=== PATIENT | male | born 1985 | race Caucasian/White ===

== ENCOUNTER 2020-07-24 12:15 | Inpatient (IN) | payer OTHER, SELFPAY ==
[~2020-07-24] VITALS: Ht 182.9 cm; Wt 75.7 kg
[2020-07-24 12:18] VITALS: BP 117/65
[2020-07-24 12:49] LABS: BASOPHILS # (AUTO) 0.1 K/uL (0.00-0.22); BASOPHILS % (AUTO) 0.9 % (0.0-2.0); EOSINOPHILS # (AUTO) 0.4 K/uL (0-0.4); EOSINOPHILS % (AUTO) 7.1 % (0.0-4.0); HEMATOCRIT 40.3 % (36-52); HEMOGLOBIN 13.6 g/dL (12.0-18.0); LYMPHOCYTES # (AUTO) 2.1 K/uL (2.0-11.5); LYMPHOCYTES % (AUTO) 37.9 % (20.5-51.1); MEAN CORPUSCULAR HEMOGLOBIN 33 pg (27-31); MEAN CORPUSCULAR HGB CONC 34 g/dL (33-37); MEAN CORPUSCULAR VOLUME 96.7 fL (80-94); MONOCYTES # (AUTO) 0.5 K/uL (0.8-1.0); MONOCYTES % (AUTO) 9.4 % (1.7-9.3); NEUTROPHILS # (AUTO) 2.5 K/uL (1.8-7.7); NEUTROPHILS % (AUTO) 44.7 % (42.2-75.2); PLATELET COUNT (AUTO) 132 K/uL (140-450); RED BLOOD CELL COUNT(AUTO) 4.17 MIL/uL (4.20-6.10); WHITE BLOOD COUNT (AUTO) 5.6 K/uL (4.8-10.8)
[2020-07-24 13:41] LABS: ALBUMIN 3.5 g/dL (3.4-5.0); ANION GAP 11.3 (8-16); ASPARTATE AMINOTRANSFERASE 13 U/L (15-37); CHLORIDE 105 mmol/L (98-107); CREATININE 0.8 mg/dL (0.6-1.3); GFR ARICAN-AMERICAN 142 mL/min (>90); GLUCOSE 92 mg/dL (74-106); POTASSIUM 4.3 mmol/L (3.5-5.1); SODIUM SERUM 139 mmol/L (136-145); TOTAL BILIRUBIN 0.2 mg/dL (0.0-1.0); UREA NITROGEN, BLOOD 18 mg/dL (7-18)
[2020-07-24 13:42] LABS: SALICYLATE < 2.8 mg/dL (2.8-20.0)
[2020-07-24 13:43] LABS: ACETAMINOPHEN < 0.5 ug/ml (10-30)
[2020-07-24] MEDS ORDERED: ONDANSETRON 4 MG/2 ML VIAL IVP PRN (15:35)
[2020-07-24] MEDS: NACL 0.9% 1,000 ML IV SCH (16:27)
[2020-07-24] MEDS: ACETAMINOPHEN 325 MG TAB PO PRN (19:37)
[2020-07-24 20:00] VITALS: BP 109/70
[2020-07-24 20:12] LABS: APPEARANCE,URINE CLEAR (CLEAR); BILIRUBIN,URINE NEGATIVE (NEGATIVE); BLOOD, URINE NEGATIVE (NEGATIVE); COLOR,URINE YELLOW (YELLOW); LEUKOCYTE ESTERASE ,URINE NEGATIVE (NEGATIVE); NITRITE, URINE NEGATIVE (NEGATIVE); UGLUCOSE NEGATIVE (NEGATIVE)
[2020-07-24 20:28] LABS: BARBITURATE, URINE NEGATIVE ng/ml (NEG <=200); BENZODIAZEPINE, URINE POSITIVE ng/mL (NEG <=200); CANNABINOID, URINE NEGATIVE ng/mL (NEG <=50); COCAINE, URINE NEGATIVE ng/mL (NEG <=300); OPIATE, URINE NEGATIVE ng/mL (NEG <=2000); PHENCYCLIDINE SCREEN,URINE NEGATIVE ng/mL (NEG <=25)
[2020-07-25] VITALS: BP 89/51
[2020-07-25] MEDS: NACL 0.9% 1,000 ML IV SCH (01:35)
[2020-07-25 04:00] VITALS: BP 97/67
[2020-07-25 07:30] LABS: ALBUMIN 3.2 g/dL (3.4-5.0); ANION GAP 8.9 (8-16); BASOPHILS % (AUTO) 0.7 % (0.0-2.0); CARBON DIOXIDE 29.5 mmol/L (21-32); CREATININE 0.9 mg/dL (0.6-1.3); EOSINOPHILS # (AUTO) 0.4 K/uL (0-0.4); EOSINOPHILS % (AUTO) 8.5 % (0.0-4.0); HEMATOCRIT 39.3 % (36-52); HEMOGLOBIN 13.7 g/dL (12.0-18.0); LYMPHOCYTES # (AUTO) 1.9 K/uL (2.0-11.5); LYMPHOCYTES % (AUTO) 38.2 % (20.5-51.1); MEAN CORPUSCULAR HEMOGLOBIN 33 pg (27-31); MEAN CORPUSCULAR HGB CONC 35 g/dL (33-37); MEAN CORPUSCULAR VOLUME 94.8 fL (80-94); MONOCYTES # (AUTO) 0.5 K/uL (0.8-1.0); MONOCYTES % (AUTO) 9.7 % (1.7-9.3); NEUTROPHILS # (AUTO) 2.1 K/uL (1.8-7.7); NEUTROPHILS % (AUTO) 42.9 % (42.2-75.2); PLATELET COUNT (AUTO) 123 K/uL (140-450); POTASSIUM 4.4 mmol/L (3.5-5.1); RED BLOOD CELL COUNT(AUTO) 4.14 MIL/uL (4.20-6.10); RED CELL DISTRIBUTION WIDTH 13.1 % (11.6-13.7); TOTAL BILIRUBIN 0.3 mg/dL (0.0-1.0); WHITE BLOOD COUNT (AUTO) 4.9 K/uL (4.8-10.8)
[2020-07-25 07:56] VITALS: BP 105/70
[2020-07-25] MEDS: ENOXAPARIN 40 MG/0.4 ML SYR SUBQ SCH (09:28)
[2020-07-25 16:00] VITALS: BP 118/67
[2020-07-26] VITALS: BP 112/62
[2020-07-26] MEDS: ACETAMINOPHEN 325 MG TAB PO PRN ×3 (00:07→21:21)
[2020-07-26 04:00] VITALS: BP 125/70
[2020-07-26 08:00] VITALS: BP 120/75
[2020-07-26] MEDS ORDERED: DIVALPROEX 500 MG TABER PO SCH (09:00)
[2020-07-26] MEDS ORDERED: ESCITALOPRAM 20 MG TAB PO SCH (09:00)
[2020-07-26] MEDS: lamoTRIgine 25 MG TAB PO SCH ×2 (09:22→21:19)
[2020-07-26] MEDS: ENOXAPARIN 40 MG/0.4 ML SYR SUBQ SCH (09:22)
[2020-07-26 10:05] LABS: BASOPHILS % (AUTO) 0.9 % (0.0-2.0); EOSINOPHILS # (AUTO) 0.3 K/uL (0-0.4); EOSINOPHILS % (AUTO) 6.9 % (0.0-4.0); HEMATOCRIT 41.7 % (36-52); LYMPHOCYTES # (AUTO) 1.5 K/uL (2.0-11.5); LYMPHOCYTES % (AUTO) 31.1 % (20.5-51.1); MEAN CORPUSCULAR HEMOGLOBIN 33 pg (27-31); MEAN CORPUSCULAR HGB CONC 34 g/dL (33-37); MEAN CORPUSCULAR VOLUME 96.6 fL (80-94); MONOCYTES # (AUTO) 0.5 K/uL (0.8-1.0); MONOCYTES % (AUTO) 10.4 % (1.7-9.3); NEUTROPHILS # (AUTO) 2.5 K/uL (1.8-7.7); NEUTROPHILS % (AUTO) 50.7 % (42.2-75.2); PLATELET COUNT (AUTO) 125 K/uL (140-450); RED BLOOD CELL COUNT(AUTO) 4.32 MIL/uL (4.20-6.10); RED CELL DISTRIBUTION WIDTH 13.1 % (11.6-13.7); WHITE BLOOD COUNT (AUTO) 4.9 K/uL (4.8-10.8)
[2020-07-26 11:09] LABS: ALBUMIN 3.4 g/dL (3.4-5.0); ANION GAP 13.8 (8-16); CARBON DIOXIDE 27.7 mmol/L (21-32); CREATININE 1.1 mg/dL (0.6-1.3); POTASSIUM 4.5 mmol/L (3.5-5.1); TOTAL BILIRUBIN 0.2 mg/dL (0.0-1.0)
[2020-07-26 16:00] VITALS: BP 135/82
[2020-07-26] MEDS ORDERED: KETOROLAC 10 MG TAB PO PRN (20:20)
[2020-07-26] MEDS ORDERED: DIVALPROEX 500 MG TABEC PO SCH (21:00)
[2020-07-27] VITALS: BP 118/78
[2020-07-27 00:48] VITALS: BP 123/84
== END 2020-07-27 02:00 | DRG 812 ==
LOC: MED 12:15 → MTU 15:38
PROVIDERS: ADMIT Internal Medicine; ATTEND Internal Medicine
DX: T39.311A Poisoning by propionic acid derivatives, accidental (unintentional), initial encounter (principal); F32.9 Major depressive disorder, single episode, unspecified; F43.10 Post-traumatic stress disorder, unspecified; F41.9 Anxiety disorder, unspecified; Y92.89 Other specified places as the place of occurrence of the external cause; Z20.822 Contact with and (suspected) exposure to COVID-19
CPT/HCPCS: 36415; 70450; 80053; 80305; 81003; 85025; 87081; 99285; G0480; G0482; J1650; U0003

== ENCOUNTER 2020-09-04 11:04 | Emergency (ER) | payer OTHER, SELFPAY ==
[~2020-09-04] VITALS: Ht 180.3 cm; Wt 70.3 kg
[2020-09-04 11:16] VITALS: BP 117/81
--- NOTE | 2020-09-04 11:27 | NUR ---
pt ambulated to bed 12.
--- NOTE | 2020-09-04 12:06 | NUR ---
34 YEAR OLD MALE COMPLAINS OF LOWER BACK PAIN AND LEFT LEG PAIN X 1 MONTH. PT STATES HE FELL 2-3 WEEKS AGO AND USES WALKER TO AMBULATE DUE TO PAIN. PT AOX4, BREATHING EVEN AND UNLABORED, SKIN WARM AND DRY. BED IN LOWEST POSITION, LOCKED, BED RAIL UPX1. PMH - DENIES ALLERGIES - NKA
[2020-09-04] MEDS ORDERED: KETOROLAC 30 MG/ML VIAL IM ONE (12:10)
[2020-09-04] MEDS ORDERED: PRED20TA5 PO (12:12)
[2020-09-04] MEDS ORDERED: LIDO1ADH47 TP (12:12)
[2020-09-04] MEDS ORDERED: METH-1681 PO (12:12)
[2020-09-04] MEDS ORDERED: NAPR-54 PO (12:12)
[2020-09-04 12:29] VITALS: BP 117/81
--- NOTE | 2020-09-04 12:30 | NUR ---
Patient discharged with v/s stable. Written and verbal after care instructions given and explained. Patient alert, oriented and verbalized understanding of instructions. Ambulatory with steady gait. All questions addressed prior to discharge. ID band removed. Patient advised to follow up with PMD. Rx of LIDOCAINE PATCH, ROBAXIN, NAPROXEN, PREDNISONE given. Patient educated on indication of medication including possible reaction and side effects. Opportunity to ask questions provided and answered.
== END 2020-09-04 12:30 | disposition home or self-care (01) ==
LOC: MED 11:04
DX: M54.42 Lumbago with sciatica, left side (principal); Z79.899 Other long term (current) drug therapy
CPT/HCPCS: 96372; 99283; J1885

== ENCOUNTER 2020-09-08 16:23 | Emergency (ER) | payer OTHER ==
[~2020-09-08] VITALS: Ht 180.3 cm; Wt 74.8 kg
[~2020-09-08 16:23] MED LIST: LIDO1ADH47 TP; METH-1681 PO; NAPR-54 PO; PRED20TA5 PO
[2020-09-08 16:31] VITALS: BP 112/69
--- NOTE | 2020-09-08 17:05 | NUR ---
Patient ambulated from lobby to bed 11 with steady/even gait.
--- NOTE | 2020-09-08 17:25 | NUR ---
34 y/o M BIB self from home with c/c left leg pain. Patient A&Ox4, ambulatory, states seen here for similar symptoms on 09/04/20, discharged with pain medication for sciatica that has not relieved pain. Patient reports fall x 1 month ago causing pain to left hip, thigh and ankle that is 9/10, sharp/throbbing/constant, starting at hip and radiating to left ankle. Patient states Lidocaine patch applied without relief to pain. Patient denies any other OTC medications prior to arrival. Denies nausea, vomiting, diarrhea, fever, chills, SOB, chest pain, bladder symptoms, urinary symptoms. Patient also reports loss of appetite x 1 day. VSS; respirations even/unlabored. Pt states medication compliance of prescribed pain meds. Bed locked in lowest position, side rails x 1, call light in reach. PMH: SEIZURE, ASTHMA, ANXIETY, DEPRESSION Meds: Robaxin, lexapro, Lidocaine patch, prednisone, naproxen NKA
[2020-09-08] MEDS ORDERED: KETOROLAC 30 MG/ML VIAL IM ONE (17:35)
--- NOTE | 2020-09-08 17:40 | NUR ---
Patient taken to x-ray via wheelchair by tech.
--- NOTE | 2020-09-08 17:44 | NUR ---
laundry technician states patient reported too much pain to complete X-rays. Patient to be medicated.
--- NOTE | 2020-09-08 17:44 | NUR ---
Patient returned from X-ray via W/C.
--- NOTE | 2020-09-08 18:05 | NUR ---
Patient reports positive relief from pain; states he feels ready for X-rays now. it service technician at ER bedside, transported patient to RAD via W/C.
[2020-09-08] MEDS ORDERED: GABA300C PO (18:52)
[2020-09-08] MEDS ORDERED: CAPS1ADH5 TP (18:52)
[2020-09-08 19:02] VITALS: BP 114/67
--- NOTE | 2020-09-08 19:02 | NUR ---
Patient discharged with v/s stable. Written and verbal after care instructions given and explained. Patient alert, oriented and verbalized understanding of instructions. Ambulatory with steady gait. All questions addressed prior to discharge. ID band removed. Patient advised to follow up with PMD. Rx of Capsaicin/Menthol, Gabapentin given. Patient educated on indication of medication including possible reaction and side effects. Opportunity to ask questions provided and answered.
== END 2020-09-08 19:02 | disposition home or self-care (01) ==
LOC: MED 16:23
DX: G62.9 Polyneuropathy, unspecified (principal); M25.562 Pain in left knee; Z79.899 Other long term (current) drug therapy
CPT/HCPCS: 73552; 73562; 73590; 96372; 99284; J1885